=== PATIENT | male | born 1955 | race Caucasian/White ===

== ENCOUNTER 2016-11-17 14:40 | Emergency (ER) | payer SELFPAY ==
[~2016-11-17 14:40] MED LIST: ADVAIR 2501 DISK W/D PO; ALBUTEROL17 GM INH; DOXYCYCLINE PO; ERYTHROMYCIN ETHYLSUCCINATE PO; METHADONE PO; VOLTAREN50 MG PO
== END 2016-11-17 15:43 | disposition home or self-care (01) ==
LOC: SED 14:40
DX: J06.9 Acute upper respiratory infection, unspecified (principal); J44.9 Chronic obstructive pulmonary disease, unspecified; Z98.890 Other specified postprocedural states; F17.210 Nicotine dependence, cigarettes, uncomplicated; Z88.0 Allergy status to penicillin
CPT/HCPCS: 99283